=== PATIENT | female | born 1970 | race Caucasian/White ===

== ENCOUNTER 2018-09-07 23:43 | Emergency (ER) | payer MEDICAID ==
[2018-09-07 23:54] VITALS: BMI 21.5
[2018-09-07 23:58] VITALS: BP 127/79; PULSE 88; RESP 20; TEMP 98.4; O2SAT 100
[2018-09-08] MEDS ORDERED: Sodium Chloride 0.9% 1,000 ML IV SCH (00:30)
--- NOTE | 2018-09-08 00:32 | ED PDOC ---
Arrival/HPI - General Historian: Patient, Spouse - History of Present Illness Narrative History of Present Illness (Text): 09/08/18 00:28 Patient is a 47yo F with no significant PMH presenting to ED with palpitations and shortness of breath for 20 minutes. She was exercising at home when afterwords experienced palpitations as well as a pressure-like feeling beneath her sternum. Her at bedside measured heart rate at the time which was 59bpm. She reports prior history of this, which occurs about every other week and resolves on its own. She reports chills and numbness around the mouth. She denies chest pain, fever, vomiting, abdominal pain, diarrhea or rashes. She reports abdominal pain yesterday for which she was prescribed pepcid from her primary doctor. Time/Duration: 1/2 hour Symptom Onset: Sudden Symptom Course: Unchanged <Tio Tinsley - Last Filed: 09/08/18 02:57> <Roberto Carlos Marquez - Last Filed: 09/08/18 23:15> - General Chief Complaint: Palpitations Time Seen by Provider: 09/07/18 23:45 Past Medical History - Infectious Disease Hx of Infectious Diseases: None - Tetanus Immunization Tetanus Immunization: Unknown - Gastrointestinal Hx Gastroesophageal Reflux: Yes - Psychiatric Hx Depression: No Hx Emotional Abuse: No Hx Physical Abuse: No Hx Substance Use: No - Surgical History Hx Appendectomy: Yes - Suicidal Assessment Feels Threatened In Home Enviroment: No <Tio Tinsley - Last Filed: 09/08/18 02:57> Family/Social History Family/Social History: No Known Family HX Smoking Status: Light Smoker < 10 Cigarettes Daily Hx Alcohol Use: No Hx Substance Use: No Hx Substance Use Treatment: No <Tio Tinsley - Last Filed: 09/08/18 02:57> Allergies/Home Meds <Tio Tinsley - Last Filed: 09/08/18 02:57> <Roberto Carlos Marquez - Last Filed: 09/08/18 23:15> Allergies/Adverse Reactions: Allergies Penicillins Allergy (Verified 09/07/18 23:55) RASH Home Medications: Home Meds Medication Instructions Recorded Confirmed No Known Home Med 09/07/18 09/07/18 Review of Systems - Review of Systems Constitutional: Other (chills) Eyes: Normal ENT: Normal Respiratory: SOB Cardiovascular: Palpitations. absent: Chest Pain Gastrointestinal: Nausea Genitourinary Female: Normal Musculoskeletal: Normal Skin: Normal Neurological: Normal Endocrine: Normal Hemo/Lymphatic: Normal Psychiatric: Normal <Tio Tinsley - Last Filed: 09/08/18 02:57> Physical Exam Vital Signs Reviewed: Yes Vital Signs Temp Pulse Resp BP Pulse Ox 09/07/18 23:55 98.4 F 88 20 127/79 100 Temperature: Afebrile Blood Pressure: Normal Pulse: Regular Respiratory Rate: Normal Appearance: Positive for: Non-Toxic, Uncomfortable Pain Distress: Mild Mental Status: Positive for: Alert and Oriented X 3 - Systems Exam Head: Present: Atraumatic, Normocephalic Pupils: Present: PERRL Extroacular Muscles: Present: EOMI Conjunctiva: Present: Normal Mouth: Present: Moist Mucous Membranes Neck: Present: Normal Range of Motion Respiratory/Chest: Present: Clear to Auscultation, Good Air Exchange. No: Respiratory Distress, Accessory Muscle Use Cardiovascular: Present: Regular Rate and Rhythm, Normal S1, S2. No: Murmurs Abdomen: Present: Normal Bowel Sounds. No: Tenderness, Distention, Peritoneal Signs Upper Extremity: Present: Normal Inspection. No: Cyanosis, Edema Lower Extremity: Present: Normal Inspection. No: Edema Neurological: Present: GCS=15, CN II-XII Intact, Speech Normal Skin: Present: Warm, Normal Color. No: Dry, Rashes Psychiatric: Present: Alert, Oriented x 3, Anxious <Tio Tinsley - Last Filed: 09/08/18 02:57> Vital Signs Temp Pulse Resp BP Pulse Ox 09/07/18 23:55 98.4 F 88 20 127/79 100 <Roberto Carlos Marquez - Last Filed: 09/08/18 23:15> Medical Decision Making ED Course and Treatment: 09/08/18 00:39 r/o ACS - CBC, CMP, TSH, free T4 - D dimer - troponin - CXR - UA, UDS - EKG: sinus tach @115bpm 09/08/18 02:57 labs wnl, troponin negative patient reports improvement in symptoms Patient signing out AMA, refusing admission. Instructed patient to follow up with primary doctor within 2 days. - RAD Interpretation Radiology Orders: 09/08/18 00:23 CHEST PORTABLE [RAD] Stat - Medication Orders Current Medication Orders: Sodium Chloride (Sodium Chloride 0.9%) 1,000 mls @ 100 mls/hr IV .Q10H MERLE <Tio Tinsley - Last Filed: 09/08/18 02:57> ED Course and Treatment: Impression: Pt seen and evaluated with medical cost consultant. Aware and agree with HPI, clinical findings, plan, and management. Pt, with no significant past medical history, presented for palpitations and shortness of breath for 20 minutes prior to arrival. Plan: -- EKG -- Chest X-ray -- Labs, cardiac enzymes, TSH, D-dimer -- Urinalysis -- IV fluids -- Mylicon -- Reassess and disposition 09/08/18 02:56 Leaving Against Medical Advice (AMA): The patient is choosing to leave against medical advice. I have personally explained to the patient that choosing to do so may result in permanent bodily harm, disability, or . I have discussed at great length that without further evaluation and monitoring there may be unforeseen circumstances and/or deterioration causing permanent bodily harm or as a result of their choice. The patient is alert, oriented, and shows the mental capacity to make clear decisions regarding the patients health care at this time. The patient continues to wish to leave against medical advice. In light of the patients decision to leave against medical advice, patient is aware of the importance to following up as instructed. The patient has been advised that they should return to the emergency room immediately if they change their mind at any time, or if their condition begins to change or worsen in any way. - RAD Interpretation Radiology Orders: 09/08/18 00:23 CHEST PORTABLE [RAD] Stat - Medication Orders Current Medication Orders: Sodium Chloride (Sodium Chloride 0.9%) 1,000 mls @ 100 mls/hr IV .Q10H MERLE Last Admin: 09/08/18 00:28 Dose: 100 mls/hr eMAR Start Stop Document 09/08/18 00:28 MOSES (Rec: 09/08/18 00:28 MOSES [id number]) Intravenous Solution Start Date 09/08/18 Start Time 00:28 Discontinued Medications Simethicone (Mylicon Chew Tab) 80 mg PO STAT STA Stop: 09/08/18 00:46 <Roberto Carlos Marquez - Last Filed: 09/08/18 23:15> - PA / PRECIPITATE WASHER / Resident Statement REJI has reviewed & agrees with the documentation as recorded. / has examined the patient and agrees with the treatment plan. <Roberto Carlos Marquez - Last Filed: 09/08/18 23:15> Disposition/Present on Arrival - Present on Arrival Any Indicators Present on Arrival: No History of DVT/PE: No History of Uncontrolled Diabetes: No Urinary Catheter: No History of Decub. Ulcer: No History Surgical Site Infection Following: None - Disposition Have Diagnosis and Disposition been Completed?: Yes Disposition Time: 02:58 <Tio Tinsley - Last Filed: 09/08/18 02:57> <Roberto Carlos Marquez - Last Filed: 09/08/18 23:15> - Disposition Diagnosis: Indigestion, Chest pain Disposition: AGAINST MEDICAL ADVICE Patient Problems: Current Active Problems Problem Status Onset Indigestion Acute Condition: IMPROVED Discharge Instructions (ExitCare): Dyspepsia (DC), Chest Pain (ED) Additional Instructions: Please follow up with your primary doctor within 2 days. If symptoms worsen, return to the emergency department. Referrals: Lisa Martin MD [Primary Care Provider] - Follow up with primary Forms: [employer] (Ukrainian)
[2018-09-08] MEDS ORDERED: Simethicone 80 mg Chewtab PO STA (00:45)
[2018-09-08 01:15] LABS: BASO # 0.05 K/mm3 (0.0-2.0); BASO % 0.6 % (0.0-3.0); EOS # 0.3 (0.0-0.7); EOS % 3.1 % (1.5-5.0); HEMOGLOBIN 15.4 g/dL (12.0-16.0); LYMPH # 2.7 (1.2-3.4); LYMPH % 34.3 % (22.0-35.0); MEAN CELL VOLUME 94.3 fl (80.0-105.0); MEAN CORPUSCULAR HEMOGLOBIN 32.5 pg (25.0-35.0); MEAN CORPUSCULAR HGB CONC 34.5 g/dl (31.0-37.0); MEAN PLATELET VOLUME 10.9 fl (7.0-11.0); MONO # 0.4 (0.1-0.6); MONO % 5.3 % (1.0-6.0); RBC 4.74 10^6/uL (3.5-6.1); RED CELL DISTRIBUTION WIDTH 12.9 % (11.5-14.5)
[2018-09-08 01:28] LABS: URINE BILIRUBIN NEGATIVE (NEGATIVE); URINE BLOOD NEGATIVE (NEGATIVE); URINE GLUCOSE (UA) NEGATIVE (NEGATIVE); URINE LEUKOCYTE ESTERASE NEGATIVE Leu/uL (NEGATIVE); URINE PROTEIN NEGATIVE mg/dL (<30 mg/dL); URINE UROBILINOGEN 0.2 E.U./dL (<1 E.U./dL)
[2018-09-08 01:29] LABS: URINE APPEARANCE CLEAR (CLEAR); URINE COLOR YELLOW (YELLOW)
[2018-09-08 01:59] LABS: BARBITURATES, UR NEGATIVE (NEGATIVE); BENZODIAZEPINES, UR NEGATIVE (NEGATIVE); OPIATES, UR NEGATIVE (NEGATIVE); PHENCYCLIDINE, UR NEGATIVE (NEGATIVE)
[2018-09-08 02:05] LABS: ALB/GLOB RATIO 1.6 (1.1-1.8); ALBUMIN 4.5 g/dL (3.0-4.8); ALT/SGPT 17 U/L (7-56); AST/SGOT 24 U/L (14-36); BLOOD UREA NITROGEN 9 mg/dL (7-21); CALCIUM 9.3 mg/dL (8.4-10.5); GFR NON-AFRICAN AMERICAN > 60
[2018-09-08 02:16] LABS: TROPONIN I < 0.01 ng/mL
[2018-09-08 02:22] LABS: FREE T4 1.37 ng/dL (0.78-2.19)
--- NOTE | 2018-09-08 10:17 | RAD ---
Date of service: 09/08/2018 HISTORY: shortness of breath COMPARISON: 11/03/2013 TECHNIQUE: 1 view obtained. FINDINGS: LUNGS: No active pulmonary disease. PLEURA: No significant pleural effusion identified, no pneumothorax apparent. CARDIOVASCULAR: No aortic atherosclerotic calcification present. Normal cardiac size. No pulmonary vascular congestion. OSSEOUS STRUCTURES: No significant abnormalities. VISUALIZED UPPER ABDOMEN: Normal. OTHER FINDINGS: None. IMPRESSION: No active disease.
--- NOTE | 2018-09-08 10:49 | CARD ---
APPROVED REPORT Date of service: 09/08/2018 EKG Measurement Heart [id number] <Conclusion> Sinus tachycardia Otherwise normal ECG
== END 2018-09-08 02:56 | disposition left against medical advice (07) ==
LOC: ED 23:43
DX: R07.9 Chest pain, unspecified (principal); K30 Functional dyspepsia; F17.210 Nicotine dependence, cigarettes, uncomplicated
CPT/HCPCS: 80053; 80324; 80345; 80346; 80349; 80353; 80358; 80361; 81003; 82550; 83615; 83735; 83992; 84439; 84443; 84484; 85025; 85378; 99281; J7030